=== PATIENT | male | born 1990 | race American Indian/Alaskan Native ===

== ENCOUNTER 2017-03-29 10:44 | Emergency (ER) | payer MEDICAID ==
[2017-03-29 10:52] VITALS: BP 149/86
--- NOTE | 2017-03-29 11:12 | EDM.PDOC ---
ED HPI GENERAL MEDICAL PROBLEM - General Chief Complaint: ENT Problem Stated Complaint: [id number] STREP THROAT Time Seen by Provider: 03/29/17 11:05 Source of Information: Reports: Patient History Limitations: Reports: No Limitations - History of Present Illness INITIAL COMMENTS - FREE TEXT/NARRATIVE: This 26 yo male patient reports to the ED with a 3 day history of a sore throat. The patient reports he has been taking some Penicillin (1 per day for 2 days) with no symptom relief. Today, the patient reports he was feeling so bad, that he attempted to get into the clinic. The patient reports the clinic reported that they were booked and sent the patient to the ED. Onset Date: 03/26/17 Duration: Constant, Getting Worse Location: Reports: Neck Quality: Reports: Ache, Sharp Severity: Moderate Improves with: Reports: None Worsens with: Reports: None Associated Symptoms: Reports: No Other Symptoms Throat Pain Score (Numeric/FACES): 7 - Related Data Allergies Allergy/AdvReac Type Severity Reaction Status Date / Time No Known Allergies Allergy Verified 03/29/17 10:49 Home Meds: Home Meds . [No Known Home Meds] 01/05/14 [History] Past Medical History - Past Health History Medical/Surgical History: Denies Medical/Surgical History Endocrine/Metabolic History: Reports: Obesity/BMI 30+ Social & Family History - Family History Family Medical History: Noncontributory - Tobacco Use Smoking Status *Q: Never Smoker Years of Tobacco use: 15 Used Tobacco, but Quit: No Second Hand Smoke Exposure: No - Caffeine Use Caffeine Use: Reports: Soda - Alcohol Use Days Per Week of Alcohol Use: 2 Number of Drinks Per Day: 10 Total Drinks Per Week: 20 - Recreational Drug Use Recreational Drug Use: No ED ROS ENT - Review of Systems Review Of Systems: ROS reveals no pertinent complaints other than HPI. ED EXAM, ENT - Physical Exam Exam: See Below Exam Limited By: No Limitations General Appearance: Alert, WD/WN, Moderate Distress, Obese Eye Exam: Bilateral Eye: EOMI, Normal Inspection, PERRL Ears: Normal External Exam, Normal Canal, Hearing Grossly Normal, Normal TMs Nose: Normal Inspection, Normal Mucousa, No Blood Mouth/Throat: Pharyngeal Erythema, Tonsillar Erythema, Tonsillar Exudates, Tonsillar Swelling Head: Atraumatic, Normocephalic Neck: Normal Inspection, Supple, Non-Tender, Full Range of Motion Respiratory/Chest: No Respiratory Distress, Lungs Clear, Normal Breath Sounds, No Accessory Muscle Use, Chest Non-Tender Cardiovascular: Normal Peripheral Pulses, Regular Rate, Rhythm, No Edema, No Gallop, No JVD, No Murmur, No Rub GI/Abdominal: Normal Bowel Sounds, Soft, Non-Tender, No Organomegaly, No Distention, No Abnormal Bruit, No Mass (Male) Exam: Deferred Rectal (Males) Exam: Deferred Back: Normal Inspection, Full Range of Motion Extremities: Normal Inspection, Normal Range of Motion, Non-Tender, No Pedal Edema, Normal Capillary Refill Neurological: Alert, Oriented, CN II-XII Intact, Normal Cognition, Normal Gait, Normal Reflexes, No Motor/Sensory Deficits Psychiatric: Normal Affect, Normal Mood Skin: Warm, Dry, Intact, Normal Color, No Rash Lymphatic: No Adenopathy Course - Vital Signs Last Recorded V/S: Last Vital Signs Temp 37.6 C 03/29/17 10:50 Pulse 105 H 03/29/17 10:50 Resp 18 03/29/17 10:50 BP 149/86 H 03/29/17 10:50 Pulse Ox 93 L 03/29/17 10:50 - Orders/Labs/Meds Orders: Active Orders 24 hr Category Date Time Status STREP SCRN A RAPID W CULT CONF [RM] Stat Lab 03/29/17 11:01 Received Departure - Departure Time of Disposition: 11:19 Disposition: Home, Self-Care 01 Condition: Fair Clinical Impression: Pharyngitis Qualifiers: Pharyngitis/tonsillitis etiology: unspecified etiology Qualified Code(s): J02.9 - Acute pharyngitis, unspecified - Discharge Information Instructions: Pharyngitis, Ocer-bn-Wifc Forms: ED Department Discharge Care Plan Goals: The patient was advised of the examination and lab results during the visit. The patient was given an injection of Bicillin while in the ED. The patient was discharged with a script for Azithromycin (250 mg) to take 2 by mouth on day 1 and 1 by mouth on days 2-5. If the patient has any additional symptoms or concerns, the patient should follow-up with his primary care provider or return to the emergency department. - My Orders Last 24 Hours: My Active Orders 03/29/17 11:01 STREP SCRN A RAPID W CULT CONF [RM] Stat - Assessment/Plan Last 24 Hours: My Active Orders 03/29/17 11:01 STREP SCRN A RAPID W CULT CONF [RM] Stat
[2017-03-29] MEDS ORDERED: Penicillin G Benzathine/Procaine 600-600 1.2 Millunits/2 ML Syringe IM ONE (11:17)
== END 2017-03-29 11:25 | disposition home or self-care (01) ==
LOC: DL.ED 10:44
DX: J02.9 Acute pharyngitis, unspecified (principal); E66.9 Obesity, unspecified
CPT/HCPCS: 87081; 87430; 96372; 99283; J0558

== ENCOUNTER 2023-03-14 16:26 | Emergency (ER) | payer MEDICAID ==
[2023-03-14 17:10] VITALS: BP 146/98; PULSE 75
== END 2023-03-14 18:09 ==
LOC: DL.ED 16:26
DX: Z53.21 Procedure and treatment not carried out due to patient leaving prior to being seen by health care provider (principal)

== ENCOUNTER 2024-04-14 01:41 | Emergency (ER) | payer MEDICAID, OTHER ==
[2024-04-14] MEDS ORDERED: Al and Mag Hydroxide/Diphenhydramine/Lidocaine/Simethicone 237 ML Bottle PO PRN (01:58)
[2024-04-14 01:59] VITALS: BP 143/88; PULSE 93
[2024-04-14] MEDS: Ketorolac 30 MG/ML SDV IM ONE (02:08)
[2024-04-14] MEDS: Amoxicillin 500 MG Cap PO ONE (02:27)
== END 2024-04-14 02:34 | disposition home or self-care (01) ==
LOC: DL.ED 01:41
DX: J02.0 Streptococcal pharyngitis (principal); R51.9 Headache, unspecified; E66.9 Obesity, unspecified; Z68.42 Body mass index [BMI] 45.0-49.9, adult; Z86.16 Personal history of COVID-19
CPT/HCPCS: 87430; 96372; 99284; A9270; J1885; 87081

== ENCOUNTER 2024-07-02 11:38 | Emergency (ER) | payer OTHER ==
[2024-07-02 11:57] VITALS: BP 150/74; PULSE 68
[2024-07-02 12:15] LABS: BASOPHILS PERCENT AUTO 0.3 % (0.0-1.0); EOSINOPHILS PERCENT AUTO 4.3 % (1.0-3.0); HEMATOCRIT 45.5 % (40.0-54.0); HEMOGLOBIN 14.5 g/dL (14.0-18.0); LYMPHOCYTES PERCENT AUTO 37.6 % (20.5-50.1); MEAN CORPUSCULAR HEMOGLOBIN 28.2 pg (27.0-34.0); MEAN CORPUSCULAR HGB CONC 31.9 g/dL (33.0-35.0); MEAN CORPUSCULAR VOLUME 88.5 fL (80-100); NEUTROPHILS PERCENT AUTO 51.8 % (42.2-75.2); PLATELET COUNT,PLT 300 10^3/uL (150-450); RED BLOOD CELL COUNT 5.14 10^6/uL (4.6-6.2); WHITE BLOOD CELL COUNT,WBC 10.7 10^3/uL (5.0-10.0)
[2024-07-02 12:19] LABS: APPEARANCE,URINE CLEAR (CLEAR); BILIRUBIN,URINE NEGATIVE (NEGATIVE); COLOR,URINE YELLOW (YELLOW); GLUCOSE,URINE 100 (NEGATIVE); KETONES,URINE 40 (NEGATIVE); LEUKOCYTE ESTERASE,URINE NEGATIVE (NEGATIVE); NITRITE,URINE NEGATIVE (NEGATIVE); OCCULT BLOOD,URINE TRACE-INTACT (NEGATIVE); PROTEIN,URINE 30 (NEGATIVE); UROBILINOGEN,URINE 0.2 mg/dL (0.2-1.0)
[2024-07-02] MEDS: Haloperidol Lactate 5 MG/ML SDV IM ONE (12:27)
[2024-07-02] MEDS: Haloperidol Lactate 5 MG/ML SDV IVPUSH ONE (12:27)
[2024-07-02] MEDS: Sodium Chloride 0.9% 10 ML Syringe FLUSH PRN (12:28)
[2024-07-02 12:30] LABS: AMPHETAMINES,URINE POSITIVE (NEGATIVE); BARBITURATES,URINE NEGATIVE (NEGATIVE); BENZODIAZEPINE,URINE NEGATIVE (NEGATIVE); MDMA (ECSTASY), URINE NEGATIVE (NEGATIVE); METHADONE,URINE NEGATIVE (NEGATIVE); METHAMPHETAMINES,URINE POSITIVE (NEGATIVE); OPIATES,URINE NEGATIVE (NEGATIVE); OXYCODONE,URINE NEGATIVE (NEGATIVE); PHENCYCLIDINE,URINE NEGATIVE (NEGATIVE); TCA,URINE NEGATIVE (NEGATIVE)
[2024-07-02 12:34] LABS: BACTERIA,URINE OCCASIONAL /HPF (0-FEW/HPF); EPITHELIAL CELLS,URINE MODERATE /HPF (NOT SEEN); MUCUS,URINE FEW /LPF (NOT SEEN); RBC,URINE 0-5 /HPF (0-5); WBC,URINE 0-5 /HPF (0-5/HPF)
[2024-07-02 12:50] LABS: A/G RATIO 0.8; ALANINE AMINOTRANSFERASE,ALT 32 U/L (16-63); ALBUMIN 3.6 g/dL (3.4-5.0); ALKALINE PHOSPHATASE 108 U/L (46-116); ANION GAP 17.5 mEq/L (7-13); ASPARTATE AMNIOTRANSFERASE,AST 23 U/L (15-37); BILIRUBIN TOTAL 0.3 mg/dL (0.2-1.0); BLOOD UREA NITROGEN,BUN 12 mg/dL (7-18); BUN/CREATININE RATIO 11.1 (No establ ref range); C-REACTIVE PROTEIN 1.09 ng/dL (<=0.50); CALCIUM 9.6 mg/dL (8.5-10.1); CARBON DIOXIDE,CO2 22 mmol/L (21-32); CHLORIDE,CL 102 mmol/L (98-107); CREATININE 1.08 mg/dL (0.70-1.30); GLUCOSE RANDOM 222 mg/dL (70-99); LIPASE 22 U/L (16-77); POTASSIUM,K 3.5 mmol/L (3.5-5.1); SODIUM,NA 138 mmol/L (136-145)
[2024-07-02 13:00] LABS: ESTIMATED GFR 92 mL/min (>=60); LACTIC ACID 5.3 mmol/L (0.4-2.0)
[2024-07-02] MEDS: Iopamidol 612 MG/ML 100 ML Bottle IVPUSH ONE (13:01)
[2024-07-02] MEDS: Sodium Chloride 0.9% 1,000 ML IV ONE (13:13)
== END 2024-07-02 14:55 | disposition home or self-care (01) ==
LOC: DL.ED 11:38
DX: R10.33 Periumbilical pain (principal); F15.10 Other stimulant abuse, uncomplicated; R74.02 Elevation of levels of lactic acid dehydrogenase [LDH]; R79.82 Elevated C-reactive protein (CRP); E66.9 Obesity, unspecified; R73.03 Prediabetes; Z86.16 Personal history of COVID-19
CPT/HCPCS: 36415; 71045; 74177; 80053; 80305; 80307; 81001; 83605; 83690; 84484; 85025; 86140; 93005; 96361; 96374; 99284; J1630; J7030; Q9967; J3490